=== PATIENT | male | born 1990 | race African-American/Black ===

== ENCOUNTER 2024-07-07 11:56 | Emergency (ER) | payer OTHER ==
[~2024-07-07] VITALS: Ht 188 cm; Wt 84.0 kg
[2024-07-07 12:01] VITALS: TEMP 98.3
[2024-07-07] MEDS ORDERED: HYDR-4527 PO (13:38)
[2024-07-07 14:15] VITALS: BP 125/71; PULSE 82; RESP 18; O2SAT 99
[2024-07-07] MEDS: HydrOXYzine HCL 25 MG TABLET PO ONE (14:18)
== END 2024-07-07 14:30 | disposition home or self-care (01) ==
LOC: EMS 12:03
DX: F41.9 Anxiety disorder, unspecified (principal); F12.90 Cannabis use, unspecified, uncomplicated
CPT/HCPCS: 99283